=== PATIENT | female | born 1955 | race Asian ===

== ENCOUNTER 2018-02-16 12:44 | Emergency (ER) | payer OTHER ==
[~2018-02-16] VITALS: Ht 160 cm; Wt 56.2 kg
--- NOTE | 2018-02-16 14:00 | ED GENERAL ADULT ---
History of Present Illness General Chief Complaint: Allergy Symptoms Stated Complaint: ALLERGIC REACTION SINCE 02/13 Source: patient, old records Exam Limitations: no limitations Triage Nurses Notes Reviewed? yes Onset: Abrupt Duration: day(s): (4), constant, getting worse Timing: recent history Injury Environment: home Severity: severe Severity Numbers: 10 No Modifying Factors: none Associated Symptoms: denies HPI: 62-year-old female history of hypertension presents the ER for evaluation. She states that Sunday of this past week she had a dental filling performed. She states that the next day she began to have generalized rash blisters to her abdomen chest and face as well as facial swelling. She saw her primary care physician who told her she had an infection and was started on Zithromax and ofloxacin eyedrops. She saw her dentist again today who advised that she come to the ER. She reports to subjective fevers at home. No nausea vomiting diarrhea. No chest pain shortness of breath no difficulty swallowing however she states today she began noting the sores in her mouth as well. No history of similar reactions in the past (Tonny Andres) Vital Signs & Intake/Output Vital Signs & Intake/Output Vital Signs Date Time Temp Pulse Resp B/P B/P Pulse O2 O2 Flow FiO2 Mean Ox Delivery Rate 02/16 1626 100.3 108 18 158/80 97 Room Air Room Air 02/16 1507 101.5 111 18 161/76 97 Room Air Room Air 02/16 1430 101.5 02/16 1350 100.2 112 16 160/95 97 Room Air Allergies Coded Allergies: No Known Allergies (02/16/18) (Shameka MA,Johnathon Zepeda) Past History Travel History Traveled to [place] past 21 day No Medical History Any Pertinent Medical History? see below for history Cardiovascular: hypertension Surgical History Surgical History: none Psychosocial History What is your primary language Czech Family History Hx Contributory? No (Tonny Andres) Review of Systems Review of Systems Constitutional: Reports: see HPI. Comments Review of systems: See HPI, All other systems negative. Constitutional, no chills no fever HEENT: no sore throat no congestion Cardiovascular: No chest pain , no palpitation Skin: no rashes, no change in skin Respiratory: No dyspnea no cough no sputum GI: No nausea no vomiting, no diarrhea : No dysuria Muscle skeletal: No joint pain, no back pain Neurologic: , no headache Heme/endocrine: No bruising Immunology: No lymphadenopathy (Tonny Andres) Physical Exam Physical Exam General Appearance: alert, awake, mild distress Comments: Well-developed well-nourished patient in no apparent distress. Head/Face: Moderate facial swelling to b/l eyelids and face Eyes: PERRL, EOMI, no conjunctival injection. Ear:External auditory canals clear Nose: atraumatic.Normal inspection: No bleeding, no septal hematoma Throat: Moist mucous membranes. sores noted to the upper palate andtongue, no bleeding,no gingival bleeding Neck: Supple, no lymphadenopathy, FROM Back: FROM Cardiovascular: tachycardic, Regular rhythms no murmurs Respiratory: Chest nontender.TNo respiratory distress. Patient speaking in full complete sentences. Breath sounds clear to auscultation bilaterally: NO W/R/R Extremities: full range of motion Neuro: awake, alert, and oriented to person, place and time. There were no obvious focal neurologic abnormalities. Skin: Warm & dry; blanchable, erythematous macular rash with purpuric center scattered across the abdomen, arms chest wall, back and face,open blisters noted to abdominal wall Psych: Mood affect normal, normal memory normal judgment. Core Measures ACS in differential dx? No CVA/TIA Diagnosis: No Sepsis Present: No Sepsis Focused Exam Completed? No (Tonny Andres) Progress Differential Diagnoses I considered the following diagnoses in my evaluation of the patient: [erythema multiforme, pemphgoid, allergic rxn, cellulitis, vasculitis, drug eruption Initial ED EKG: STACH AT100,NO ACUTE ST SEGCHANGES, NORMAL AXIS (Tonny Andres) Plan of Care: Orders Procedure Date/time Status LACTIC ACID 02/16 1654 Complete EKG 02/16 1511 Active C-REACTIVE PROTEIN 02/16 1402 Complete Saline Lock 02/16 1354 Active BLOOD CULTURE 02/16 1354 Active HIGH SENSITIVITY CRP 02/16 1354 Complete WESTERGREN SED RATE 02/16 1354 Complete COMPREHENSIVE METABOLIC PANEL 02/16 1354 Complete CBC WITHOUT DIFFERENTIAL 02/16 1354 Complete Laboratory Tests 02/16/18 1402: Lactic Acid 2.0 02/16/18 1402: Anion Gap 13, Estimated GFR > 60, BUN/Creatinine Ratio 27.1 H, Glucose 120 H, Calcium 8.3 L, Total Bilirubin 1.1, AST 59 H, ALT 51, Alkaline Phosphatase 72, C-Reactive Prot, Quant > 9.0 H, C-React Prot High Sens > 15.0 H, Total Protein 7.8, Albumin 4.0, Globulin 3.8, Albumin/Globulin Ratio 1.1, CBC w Diff MAN DIFF ORDERED, RBC 5.84 H, MCV 86.2, MCH 28.9, MCHC 33.5, RDW 12.6, MPV 7.6, Gran % 85.3 H, Lymphocytes % 13.1 L, Monocytes % 1.5 L, Eosinophils % 0, Basophils % 0.1, Absolute Granulocytes 5.0, Segmented Neutrophils 70, Band Neutrophils 16 H , Absolute Lymphocytes 0.8 L, Lymphocytes 12 L, Monocytes 2, Absolute Monocytes 0.1, Absolute Eosinophils 0, Absolute Basophils 0, Platelet Estimate ADEQUATE, Normocytic RBCs VERIFIED, Normochromic RBCs VERIFIED, ESR Westergren 20 Microbiology 02/16 1441 BLOOD: Blood Culture - RECD 02/16 1354 BLOOD: Blood Culture - ORD labs ordered, case d/w dr young who eval the pt and agrees with plan, [id number] giv, ivfluids ordered Dr. Mlyes spoke with [facility] waiting disposition 1500 patient resting at this time IV fluids running I discussed with her at length all of her labs and her discussions with [facility] Dr. Myles spoke with attending Dr. Benitez at [facility] who will accept the patient [facility] called discussed the patient plan of care I spoke with her all over the phone to discuss the patient's disposition disposition and plan (Tonny Andres) Comments: 02/16/2018 2:25:19 PM patient's case discussed with the nurse of the [facility] who will discuss this patient's case with the burn unit team. They will call back with recommendations. 02/16/2018 2:47:54 PM patient's case discussed with the resident of the [place] [facility] burn unit who will discuss this patient's case with the attending. 02/16/2018 3:58:[address] Cunningham called back. He discussed this patient's case with Dr. Benitez, the burn unit attending physician, and patient has been accepted in transfer. (Shameka MA,Johnathon Zepeda) Departure Departure Time of Disposition: 1610 Referrals: Alfredo Silva MD (PCP/Family) Departure Forms: Customer Survey General Discharge Information (Tonny Andres) Departure Disposition: OTHER GENERAL HOS[facility] (ACUTE) Condition: Stable Clinical Impression Primary Impression: Dunlap-Sergey syndrome PA/CHEMISTRY ACCOUNT MANAGER Co-Sign Statement Statement: ED Attending supervision documentation- [X] I saw and evaluated the patient. I have also reviewed all the pertinent lab results and diagnostic results. I agree with the findings and the plan of care as documented in the PA's/CHEMISTRY ACCOUNT MANAGER's documentation. She presents for evaluation of a "allergic reaction" that has been unresponsive to outpatient management BY Her primary care physician. [] I have reviewed the ED Record and agree with the PA's/CHEMISTRY ACCOUNT MANAGER's documentation. [] Additions or exceptions (if any) to the PAs/CHEMISTRY ACCOUNT MANAGER's note and plan are summarized below: [] (Shameka MA,Johnathon Zepeda) Critical Care Note Critical Care Note Critical Care Time: 30-74 min (Tonny Andres) primary care physician. [] I have reviewed the ED Record and agree with the PA's/CHEMISTRY ACCOUNT MANAGER's documentation. [] Additions or exceptions (if any) to the PAs/CHEMISTRY ACCOUNT MANAGER's note and plan are summarized below: [] (Johnathon Myles MD) Critical Care Note Critical Care Note Critical Care Time: 30-74 min (Tonny Andres)
[2018-02-16 14:11] LABS: ABSOLUTE BASOPHIL COUNT 0 /CUMM (0.0-0.2); ABSOLUTE EOSINOPHIL COUNT 0 /CUMM (0.0-0.7); ABSOLUTE LYMPH COUNT 0.8 /CUMM (1.2-3.4); ABSOLUTE MONOCYTE COUNT 0.1 /CUMM (0.10-0.60); EOSINOPHIL % 0 % (0-5)
[2018-02-16 14:13] LABS: BASOPHIL % 0.1 % (0.0-2.0); GRANULOCYTE % 85.3 % (42.2-75.2); HEMATOCRIT 50.3 % (37-47); MEAN CORPUSCULAR HGB 28.9 PG (27.0-31.0); MEAN CORPUSCULAR HGB CONC 33.5 G/DL (33.0-37.0); MEAN CORPUSCULAR VOLUME 86.2 FL (81.0-99.0); MEAN PLATELET VOLUME 7.6 FL (7.4-10.4); PLATELET COUNT 247 /CUMM (130-400); RBC DISTRIBUTION WIDTH 12.6 % (11.5-14.5); RED BLOOD CELL CT 5.84 /CUMM (4.20-5.40)
[2018-02-16 14:22] LABS: WHITE BLOOD CELL COUNT 5.9 /CUMM (4.8-10.8)
[2018-02-16 16:26] VITALS: BP 158/80
== END 2018-02-16 16:44 | disposition short-term general hospital (02) ==
LOC: ERH 12:44
PROVIDERS: Physician Assistant Medical
DX: L51.1 Stevens-Johnson syndrome (principal)
CPT/HCPCS: 87040; 93005; 93010; 96361; 96374; 96375; 99291; J0131; J1200; J2930